=== PATIENT | male | born 1975 | race Caucasian/White ===

== ENCOUNTER 2017-11-21 16:57 | Emergency (ER) | payer OTHER | END 2017-11-21 18:02 | disposition left against medical advice (07) | LOC: ED 17:56 | DX: M25.511 Pain in right shoulder (principal); Z53.21 Procedure and treatment not carried out due to patient leaving prior to being seen by health care provider ==

== ENCOUNTER 2017-11-21 18:26 | Emergency (ER) | payer OTHER ==
[~2017-11-21] VITALS: Ht 185.4 cm; Wt 92.5 kg
[2017-11-21] MEDS ORDERED: ACETAMINOPHEN 500 MG TABLET ONE (19:08)
[2017-11-21] MEDS ORDERED: PLEASE ENTER ALLERGIES MC SCH (19:30)
[2017-11-21] MEDS ORDERED: ACETAMINOPHEN 500 MG TABLET PO ONE (19:30)
[2017-11-21 21:50] VITALS: BP 114/76
== END 2017-11-21 21:57 | disposition home or self-care (01) ==
LOC: ED 21:54
DX: S42.214A Unspecified nondisplaced fracture of surgical neck of right humerus, initial encounter for closed fracture (principal); S63.502A Unspecified sprain of left wrist, initial encounter; V19.60XA Unspecified pedal cyclist injured in collision with unspecified motor vehicles in traffic accident, initial encounter; Y93.89 Activity, other specified; Y99.8 Other external cause status; Y92.89 Other specified places as the place of occurrence of the external cause
CPT/HCPCS: 29105; 29260; 99284